=== PATIENT | female | born 1940 | race Caucasian/White ===

== ENCOUNTER 2018-04-20 07:38 | Day surgery (SDC) | payer MEDICARE ==
[~2018-04-20 07:38] MED LIST: MIDAZOLAM INJ 2 MG/2 ML VIAL (J2250) As Ordered; PHENYLEPHRINE HCL 10 % OPHTH. SOL 5ML OS; fentaNYL 100 MCG/2 ML INJECTION (J3010) As Ordered
[2018-04-20] MEDS: LIDOCAINE 3.5 % 1ML OPHTH TOPICAL GEL OU (08:46)
[2018-04-20] MEDS: OFLOXACIN 0.3 % (OCUFLOX) OPTH SOL 5ML OS (08:46)
[2018-04-20] MEDS: PHENYLEPHRINE 2.5% OPHTH SOL 2ML OS (08:46)
[2018-04-20] MEDS: TROPICAMIDE 1% OPHTH SOLN 2ML OS (08:46)
[2018-04-20] MEDS: CYCLOPENTOLATE 2% OPHTH SOLN 2ML BTL OS (08:47)
[2018-04-20] MEDS: LIDOCAINE 1% SDV 5 ML VIAL As Ordered (11:00)
[2018-04-20] MEDS: BSS with VANC/TOB/EPI for EYE CASES IR (11:00)
[2018-04-20] MEDS: MOXIFLOXACIN IN BSS 0.25MG/0.25ML INTRACAMERAL INJ (OR EYE ONLY)(J2280) As Ordered (11:00)
[2018-04-20] MEDS: TRIAMCINOLONE PRES FR 40 MG/ML 1ML(TRIESENCE)(OR EYE ONLY)(J3300 PER 1MG) As Ordered (11:00)
[2018-04-20] MEDS: HEALON DUET PRO(HEALON 10MG/ML 0.55ML & HEALON ENDOCOAT 30MG/ML 0.85ML) As Ordered (11:00)
[2018-04-20] MEDS: POVIDONE-IODINE 5% OPHTH PREP SOL 30ML As Ordered (11:00)
[2018-04-21 11:03] LABS: BEDSIDE GLUCOSE 142 MG/DL (83-110)
== END 2018-04-20 11:55 | disposition home or self-care (01) ==
LOC: M SDC 07:38
DX: H25.9 Unspecified age-related cataract (principal); H57.03 Miosis; I10 Essential (primary) hypertension; E78.5 Hyperlipidemia, unspecified; E03.9 Hypothyroidism, unspecified; K21.9 Gastro-esophageal reflux disease without esophagitis; Z79.82 Long term (current) use of aspirin; Z88.0 Allergy status to penicillin; Z88.2 Allergy status to sulfonamides
CPT/HCPCS: 66982

== ENCOUNTER 2018-05-11 07:13 | Day surgery (SDC) | payer MEDICARE ==
[~2018-05-11 07:13] MED LIST changes: -MIDAZOLAM INJ 2 MG/2 ML VIAL (J2250) As Ordered; +PHENYLEPHRINE HCL 10 % OPHTH. SOL 5ML OD; -PHENYLEPHRINE HCL 10 % OPHTH. SOL 5ML OS; -fentaNYL 100 MCG/2 ML INJECTION (J3010) As Ordered
[2018-05-11] MEDS: CYCLOPENTOLATE 2% OPHTH SOLN 2ML BTL OD (08:45)
[2018-05-11] MEDS: PHENYLEPHRINE 2.5% OPHTH SOL 2ML OD (08:45)
[2018-05-11] MEDS: TROPICAMIDE 1% OPHTH SOLN 2ML OD (08:45)
[2018-05-11] MEDS: LIDOCAINE 3.5 % 1ML OPHTH TOPICAL GEL OU (08:45)
[2018-05-11] MEDS: OFLOXACIN 0.3 % (OCUFLOX) OPTH SOL 5ML OD (08:45)
[2018-05-11] MEDS: TRIAMCINOLONE PRES FR 40 MG/ML 1ML(TRIESENCE)(OR EYE ONLY)(J3300 PER 1MG) As Ordered (10:30)
[2018-05-11] MEDS: MOXIFLOXACIN IN BSS 0.25MG/0.25ML INTRACAMERAL INJ (OR EYE ONLY)(J2280) As Ordered (10:30)
[2018-05-11] MEDS: BSS with VANC/TOB/EPI for EYE CASES IR (10:30)
[2018-05-11] MEDS: LIDOCAINE 1% SDV 5 ML VIAL As Ordered (10:30)
[2018-05-11] MEDS: POVIDONE-IODINE 5% OPHTH PREP SOL 30ML As Ordered (10:30)
[2018-05-11] MEDS: HEALON DUET PRO(HEALON 10MG/ML 0.55ML & HEALON ENDOCOAT 30MG/ML 0.85ML) As Ordered (10:30)
[2018-05-11] MEDS ORDERED: MIDAZOLAM INJ 2 MG/2 ML VIAL (J2250) As Ordered (10:47)
[2018-05-11] MEDS ORDERED: fentaNYL 100 MCG/2 ML INJECTION (J3010) As Ordered (10:47)
== END 2018-05-11 11:45 | disposition home or self-care (01) ==
LOC: M SDC 07:13
DX: H25.89 Other age-related cataract (principal); I12.9 Hypertensive chronic kidney disease with stage 1 through stage 4 chronic kidney disease, or unspecified chronic kidney disease; N18.3 Chronic kidney disease, stage 3 (moderate); E78.2 Mixed hyperlipidemia; E11.22 Type 2 diabetes mellitus with diabetic chronic kidney disease; E11.65 Type 2 diabetes mellitus with hyperglycemia; E03.9 Hypothyroidism, unspecified; K21.9 Gastro-esophageal reflux disease without esophagitis; Z88.0 Allergy status to penicillin; Z88.2 Allergy status to sulfonamides; Z79.899 Other long term (current) drug therapy; Z79.82 Long term (current) use of aspirin; Z79.84 Long term (current) use of oral hypoglycemic drugs
CPT/HCPCS: 66984